=== PATIENT | male | born 1960 | race Caucasian/White ===

== ENCOUNTER 2021-01-12 05:46 | Day surgery (SDC) | payer BC ==
[2021-01-12] MEDS ORDERED: Bupivacaine 0.25% 10 ML SDV ONE ×2 (06:17→06:50)
[2021-01-12] MEDS ORDERED: Lidocaine 1% 30 ML SDV ONE (06:17)
[2021-01-12] MEDS ORDERED: Triamcinolone Acetonide 40 MG/ML 1 ML SDV ONE ×3 (06:17→06:53)
[2021-01-12] MEDS ORDERED: Midazolam 1 MG/ML 2 ML SDV ONE (06:21)
[2021-01-12] MEDS ORDERED: Lidocaine 1% 4 ML ONE (06:21)
[2021-01-12] MEDS ORDERED: Propofol 200 MG/20 ML SDV ONE (06:21)
[2021-01-12] MEDS ORDERED: fentaNYL 100 MCG/2 ML SDV ONE (06:21)
--- NOTE | 2021-01-12 06:38 | PCM.PREANE ---
Preanesthetic Assessment - Procedure Proposed Procedure: trigger finger thumb release with left trigger thumb steroid injection - Anesthesia/Transfusion/Family Hx Anesthesia History: Prior Anesthesia Without Reaction Family History of Anesthesia Reaction: No Transfusion History: No Prior Transfusion(s) - Review of Systems General: No Symptoms Pulmonary: No Symptoms Cardiovascular: No Symptoms Gastrointestinal: No Symptoms Neurological: No Symptoms Other: Reports: None - Physical Assessment NPO Status Date: 01/11/21 NPO Status Time: 21:00 Vital Signs: 152/83 64 98% 97.1 16 Height: 5 ft 8 in Weight: 75 kg ASA Class: 2 Mental Status: Alert & Oriented x3 Airway Class: Mallampati = 1 Dentition: Reports: Normal Dentition Thyro-Mental Finger Breadths: 3 Mouth Opening Finger Breadths: 3 ROM/Head Extension: Full Lungs: Clear to Auscultation, Normal Respiratory Effort Cardiovascular: Regular Rate, Regular Rhythm - Blood Blood Available: No - Acknowledgements Anesthesia Type Planned: MAC Pt an Appropriate Candidate for the Planned Anesthesia: Yes Alternatives and Risks of Anesthesia Discussed w Pt/Guardian: Yes Pt/Guardian Understands and Agrees with Anesthesia Plan: Yes PreAnesthesia Questionnaire Cardiovascular History: Reports: None Respiratory History: Reports: None Other Musculoskeletal History: trigger thumb bilat, right foot surgery Dermatologic History: Reports: Psoriasis - Past Surgical History GI Surgical History: Reports: Appendectomy, Hernia Repair/Other - SUBSTANCE USE Tobacco Use Status *Q: Never Tobacco User Tobacco Use Within Last Twelve Months: No Second Hand Smoke Exposure: No Days Per Week of Alcohol Use: 1 Recreational Drug Use History: No - HOME MEDS Home Medications: Home Meds Adalimumab [Humira Pen] 40 mg SQ ASDIRECTED 01/11/21 [History] Clobetasol [Clobetasol Propionate 0.05% Cream] 15 gm TOP ASDIRECTED PRN 01/11/21 [History] Hydrocodone/Acetaminophen [Hydrocodone-Acetamin 5-325 mg] 1 - 2 each PO Q6H PRN #6 tablet 01/11/21 [Rx] - CURRENT (IN HOUSE) MEDS Current Meds: Current Medications Lactated Ringer's (Ringers, Lactated) 1,000 mls @ 125 mls/hr IV ASDIRECTED ALEJANDRA Stop: 01/12/21 23:00 Lidocaine/Sodium Bicarbonate (Lidocaine 1%/Sod Bicarbonate In Ns 8.4% 1 Ml Syringe) 0.25 ml IDERM ONETIME PRN PRN Reason: Prior to IV Start Stop: 01/12/21 18:00 Sodium Chloride (Sodium Chloride 0.9% 10 Ml Syringe) 10 ml FLUSH ASDIRECTED PRN PRN Reason: Keep Vein Open Stop: 01/12/21 18:00 Discontinued Medications Bupivacaine HCl (Bupivacaine 0.25% 10 Ml Sdv) Confirm Administered Dose 20 ml .ROUTE .STK-MED ONE Stop: 01/12/21 06:18 Fentanyl (Fentanyl 100 Mcg/2 Ml Sdv) Confirm Administered Dose 100 mcg .ROUTE .STK-MED ONE Stop: 01/12/21 06:22 Lidocaine HCl (Xylocaine-Mpf 1%) Confirm Administered Dose 4 mls @ as directed .ROUTE .STK-MED ONE Stop: 01/12/21 06:22 Lidocaine HCl (Lidocaine 1% 30 Ml Sdv) Confirm Administered Dose 30 ml .ROUTE .STK-MED ONE Stop: 01/12/21 06:18 Midazolam HCl (Midazolam 1 Mg/Ml 2 Ml Sdv) Confirm Administered Dose 2 mg .ROUTE .STK-MED ONE Stop: 01/12/21 06:22 Propofol (Propofol 200 Mg/20 Ml Sdv) Confirm Administered Dose 200 mg .ROUTE .STK-MED ONE Stop: 01/12/21 06:22 Triamcinolone Acetonide (Triamcinolone Acetonide 40 Mg/Ml 1 Ml Sdv) Confirm Administered Dose 40 mg .ROUTE .STK-MED ONE Stop: 01/12/21 06:18
[2021-01-12] MEDS ORDERED: ceFAZolin 1 GM Vial ONE (06:47)
[2021-01-12] MEDS ORDERED: Sodium Chloride 0.9% 10 ML Syringe FLUSH PRN (07:00)
[2021-01-12] MEDS ORDERED: Lidocaine 1%/Sod Bicarbonate in NS 8.4% 1 ML Syringe IDERM PRN (07:00)
[2021-01-12] MEDS ORDERED: Lactated Ringers 1,000 ML IV SCH (07:00)
[2021-01-12] MEDS ORDERED: Ketorolac 30 MG/ML SDV ONE (07:02)
--- NOTE | 2021-01-12 07:32 | PCM48HPAN ---
Post Anesthesia Note - EVALUATION WITHIN 48HRS OF ANESTHETIC Vital Signs in Normal Range: Yes Patient Participated in Evaluation: Yes Respiratory Function Stable: Yes Airway Patent: Yes Cardiovascular Function Stable: Yes Hydration Status Stable: Yes Pain Control Satisfactory: Yes Nausea and Vomiting Control Satisfactory: Yes Mental Status Recovered: Yes
--- NOTE | 2021-01-18 13:26 | PCM.OPNOTE ---
- General Post-Op/Procedure Note Date of Surgery/Procedure: 01/12/21 Operative Procedure(s): right thumb a1 libby release. left thumb a1 libby injection. 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
--- NOTE | 2021-01-24 07:21 | OR ---
DATE OF OPERATION: 01/12/2021 SURGEON: Deshaun Isbell MD OPERATION PERFORMED: 1. Right thumb A1 libby release. 2. Left thumb A1 libby injection. 3. Right 1st carpometacarpal joint injection. PREOPERATIVE DIAGNOSIS: 1. Bilateral thumb stenosing tenosynovitis. 2. Right basilar thumb joint arthritis. POSTOPERATIVE DIAGNOSIS: 1. Bilateral thumb stenosing tenosynovitis. 2. Right basilar thumb joint arthritis. ANESTHESIA: Local MAC. ANESTHESIA PROVIDER: Abdullahi Ramos CRNA. HEAD OF VISUAL MERCHANDISING: Lina Riggins PA-C. ESTIMATED BLOOD LOSS: Less than 5 mL. COMPLICATIONS: None. CONDITION: Stable. DESCRIPTION OF PROCEDURE: The patient was identified in the preoperative holding area. Proper site was marked identified by the surgeon. The patient was taken back to the operative theater where after adequate anesthesia, the patient's right upper extremity was sterilely prepped and draped in the usual sterile fashion. OR time-out was performed. The patient received 2 g IV Ancef. At this time, 1% lidocaine without epinephrine, 0.25% Marcaine without epinephrine were used to anesthetize over the A1 libby of the right thumb. Esmarch was used as a tourniquet on the forearm. A transverse incision was made. Blunt dissection was taken down to the A1 libby. Ragnell retractors were then used to protect the neurovascular bundles. [place] blade was then used to resect the A1 libby both proximally and distally. The patient did have minor tendinous adhesions that were taken down of the thumb flexor tendons. At this time, 1 mL 40 mg Kenalog, 1 mL of 0.25% Marcaine were injected to the base of the right 1st carpometacarpal joint. After this was completed, 1 mL of 40 mg Kenalog, 1 mL of 0.25% Marcaine was injected to the left thumb A1 libby. The patient tolerated all procedures well. 4-0 nylon sutures were used for closure of the skin and a sterile soft dressing was applied to the right upper extremity. MMODAL /[id number]
== END 2021-01-12 08:05 | disposition home or self-care (01) ==
LOC: JD.SDS 05:46
PROVIDERS: ATTEND Orthopaedic Surgery
DX: M65.841 Other synovitis and tenosynovitis, right hand (principal); M18.11 Unilateral primary osteoarthritis of first carpometacarpal joint, right hand; M65.842 Other synovitis and tenosynovitis, left hand; Z79.899 Other long term (current) drug therapy; Z90.49 Acquired absence of other specified parts of digestive tract; Z98.890 Other specified postprocedural states
CPT/HCPCS: 20552; 20605; 26055; J0690; J1885; J2250; J2704; J3010; J3301; J3490; J7120; 01810